=== PATIENT | female | born 1940 | race Caucasian/White ===

== ENCOUNTER 2017-02-18 13:21 | Emergency (ER) | payer SELFPAY ==
[2017-02-18 13:30] VITALS: RESP 18
--- NOTE | 2017-02-18 15:05 | EDPHY ---
HPI/HX/ROS/PE/MDM Narrative: CHIEF COMPLAINT: Cystitis HPI: The patient is a 76 y/o female with a history of urinary incontinence arriving with her family complaining of painful urination and urinary incontinence. Her symptoms have been present for several days and have worsened over the past two days. The pain is primarily in her lower abdomen and spreads up to her chest and neck and is only present while urinating. She has increased urinary incontinence. She denies any other associated symptoms. REVIEW OF SYSTEMS: Aside from elements discussed in the HPI, a comprehensive 10-point review of systems was reviewed and is negative. PMH: Urinary incontinence SOCIAL HISTORY: From [place], friend and at bedside, visiting for two more weeks. PHYSICAL EXAM: General:Patient is alert, in no acute distress. ENT:Eyes are normal to inspection. ENT inspection normal. Neck: Normal inspection. Full range of motion. Respiratory:No respiratory distress. Breath sounds normal bilaterally. Cardiovascular: Regular rate and rhythm. Normal cap refill. Abdomen:The abdomen is nontender to palpation. There are no peritoneal signs. There are normal bowel sounds. Back: Normal to inspection. No tenderness to palpation. Skin: Normal color. No rash. Warm and dry. Extremities: Normal appearance. Full range of motion. Neuro: Oriented x3. Normal motor function. Normal sensory function. ED Course: 1501: I assessed patient and reviewed labs. Labs indicate the patient has a urinary tract infection. I discussed workup with the patient. I feel she is ready for discharge with a prescription for antibiotics. Patient agrees. Follow- up and return precautions given. MDM: This patient presents with vague fever and chills without focal source. We performed a broad workup including CXR, flu swab, UA and labs. Workup is negative with exception of positive UA, so this seems to be the likely etiology of her symptoms. I will prescribe antibiotics and discharge home with strict return precautions. - Data Points Laboratory Results: 02/18/17 13:46 Urine Color YELLOW Urine Appearance MODERATELY TURBID Urine pH 5.0 (5.0-7.5) Ur Specific [place] 1.021 (1.002-1.030) Urine Protein 2+ H (NEGATIVE) Urine Ketones NEGATIVE (NEGATIVE) Urine Blood 3+ H (NEGATIVE) Urine Nitrate NEGATIVE (NEGATIVE) Urine Bilirubin NEGATIVE (NEGATIVE) Urine Urobilinogen NEGATIVE EU EU (0.2-1.0) Ur Leukocyte Esterase 3+ H (NEGATIVE) Urine RBC 50-182 /hpf H /hpf (0-3) Urine WBC 50-182 /hpf H /hpf (0-3) Ur Epithelial Cells NONE SEEN /lpf /lpf (NONE-1+) Urine Bacteria 2+ /hpf H /hpf (NONE SEEN) Urine Glucose NEGATIVE (NEGATIVE) General Time Seen by Provider: 02/18/17 14:53 Initial Vital Signs: Initial Vital Signs Temperature (C) 36.7 C 02/18/17 13:25 Heart Rate 75 02/18/17 13:25 Respiratory Rate 18 02/18/17 13:25 Blood Pressure 163/99 H 02/18/17 13:25 O2 Sat (%) 96 02/18/17 13:25 O2 Delivery Mode Room Air Allergies/Adverse Reactions: No Known Allergies Allergy (Unverified 02/18/17 13:23) Home Medications: Medication Instructions Recorded Nitrofurantoin Monohyd/M-Cryst 100 mg PO BID #14 capsule 02/18/17 [Macrobid 100 mg Capsule] Departure - Departure Disposition: Home, Routine, Self-Care Clinical Impression: Urinary tract infection Qualifiers: Urinary tract infection type: acute cystitis Hematuria presence: without hematuria Qualified Code(s): N30.00 - Acute cystitis without hematuria Condition: Good Instructions: Urinary Tract Infection in Women (ED) Additional Instructions: 1. Take the full course of antibiotics as directed. Continue taking prescription even if symptoms improve. 2. Follow-up with a primary care provider if symptoms do no improve in 2-3 days. 3. Return to the ED for worsening of condition. Referrals: Cory Lai MD [Medical Doctor] - As per Instructions Prescriptions: Nitrofurantoin Monohyd/M-Cryst [Macrobid 100 mg Capsule] 100 mg PO BID #14 capsule Report Scribed for: Benjie Joseph Report Scribed by: Veena Mcghee Date of Report: 02/18/17 Time of Report: 15:05 Physician Review and Approval Statement: Portions of this note were transcribed by an ED scribe. I personally performed the history, physical exam, and medical decision making; and confirm the accuracy of the information in the transcribed note.
[2017-02-18 15:06] VITALS: BP 155/74; PULSE 71; TEMP 97.9; O2SAT 95
== END 2017-02-18 15:24 | disposition home or self-care (01) ==
DX: N30.00 Acute cystitis without hematuria (principal); B96.20 Unspecified Escherichia coli [E. coli] as the cause of diseases classified elsewhere